=== PATIENT | male | born 1990 | race Caucasian/White ===

== ENCOUNTER 2018-05-20 21:59 | Outpatient (CLI) | payer OTHER ==
[2018-05-20 22:27] LABS: MEAN CORPUSCULAR HEMOGLOBIN 30.3 pg (28.0-34.0)
[2018-05-20 22:28] LABS: BASOPHILS % 0.4 (0.0-1.5); EOSINOPHILS % 0.7 % (0.0-6.8); MONOCYTES % 5.3 % (0.0-11.0); NEUTROPHILS # 8.3 # k/uL (1.4-7.7)
[2018-05-20 22:37] LABS: eGFR (Non-African) > 60
== END 2018-05-20 22:00 ==
LOC: LAB 21:59
PROVIDERS: ATTEND Family Medicine
DX: R00.0 Tachycardia, unspecified (principal)
CPT/HCPCS: 36415; 80053; 85025